=== PATIENT | male | born 1995 | race Caucasian/White ===

== ENCOUNTER 2018-05-15 21:14 | Emergency (ER) | payer BC, SELFPAY ==
[2018-05-15 21:15] VITALS: BP 136/73; PULSE 62; RESP 18; TEMP 37.3; O2SAT 99; BMI 21.7
--- NOTE | 2018-05-15 21:45 | RAD_ITS ---
STUDY: X-RAY CHEST REASON FOR EXAM: Male, 22 years old. Fever. Cough. TECHNIQUE: PA and lateral views of the chest. COMPARISON: August 01, 2016. FINDINGS: The lungs are clear and hyper expanded. There is no demonstrated pleural abnormality. Normal size heart. Normal mediastinum and elliott. Normal visualized pulmonary arteries. Normal visualized aortic arch and descending thoracic aorta. Normal visualized thoracic spine. Normal visualized ribs, clavicles, and shoulders. There is no demonstrated abnormality of the visualized soft tissue structures of the upper abdomen. RAD/Chest PA and Lateral IMPRESSION: No focal infiltrate or edema. Electronically Signed: Damian Theodore MD at 22:15 EDT , Service support ,
--- NOTE | 2018-05-15 21:53 | ED.VISSUMM ---
- ER Visit Summary Date of Service: 05/15/18 Chief Complaint: Fever, cough History of Present Illness: The patient is a 22 M who presents with fever, cough, dyspnea, dyspnea on exertion that started Monday. He has history of seasonal allergies with bronchospasm. He does complain of mild bifrontal headache. He complains of nasal congestion. He denies earache. He states his throat hurts when he coughs. He denies any chest pain. His cough is productive of green to yellow colored sputum. He is a non-smoker. He denies nausea, vomiting diarrhea. He denies dysuria, frequency, urgency or hematuria. He has not noted any rashes. He denies light sensitivity, neck stiffness or pain. Physical Examination: Patient appears ill. He does not appear toxic. His vital signs are unremarkable. He is afebrile presently. Head is atraumatic normocephalic. Pupils are equal round reactive. Extraocular muscles are intact. TMs are pearly white with landmarks noted. Nares patent with no drainage. Posterior pharynx without erythema or exudate. Uvula is midline. There is no dysphonia or dysphasia. Trachea is midline. There is no stridor with auscultation of the neck. Neck is supple with no meningeal findings. Heart is regular without murmur, gallop or rub. Patient has wheezing left lower lobe posteriorly with increased vocal fremitus and egophony. There are scattered rales on the left as well. Abdomen is soft nontender. Bowel sounds are present normal. Patient is alert and oriented ?3. Motor is 5 over 5. Sensory is intact. DTRs are symmetric with no clonus or Babinski sign. Cranial 2 through 12 are intact. Cerebellar testing is normal. Test Results: Two-view chest x-ray was obtained and reveals no abnormality per my interpretation. The cardiac silhouette is normal. Mediastinum is normal. There is no infiltrate or effusion noted. Emergency Department Course and Treatment: Clinically patient has left lower lobe pneumonia. Will obtain chest x-ray. Since he is wheezing he was treated with albuterol. He also received a doxycycline 100 mg capsule. Treatment Plan: Albuterol inhaler and antibiotics Disposition: Discharged to home Impression: 1. Clinical left lower lobe pneumonia 2. Bronchospasm secondary #1 This note was generated with [employer] software. It may contain incorrect words, spelling, and punctuation that were not noted in review of the chart prior to signing ED Disposition - Plan for ED Patient: Disposition: Home or Assisted Living Chief Complaint: General Illness Instructions: ED Pneumonia Adult Prescriptions: Doxycycline Monohydrate 100 mg PO BID #14 cap Referrals: [facility] Doctor,Out of [Primary Care Provider] - Jake Alvarado [NON-STAFF] - 1 Week if not improving Additional Instructions: Administer 2 puffs of albuterol inhaler every 2-4 hours while awake for the next 4 days then every 4-6 hours as needed. Take doxycycline until gone.
[2018-05-15] MEDS: Doxycycline 100 MG CAPSULE PO (22:07)
== END 2018-05-15 22:21 | disposition home or self-care (01) ==
PROVIDERS: Emergency Provider Emergency Medicine
DX: J18.1 Lobar pneumonia, unspecified organism (principal); J98.01 Acute bronchospasm
CPT/HCPCS: 71046; 99283

== ENCOUNTER 2018-08-26 14:23 | Emergency (ER) | payer BC, SELFPAY ==
[2018-08-26 14:24] VITALS: BP 137/90; PULSE 98; RESP 14; TEMP 37.1; O2SAT 99; BMI 20.4
[2018-08-26] MEDS: LORazepam 2 MG/ML Syringe 1 MG IM (14:59)
[2018-08-26 15:04] VITALS: PULSE 74; O2SAT 100
[2018-08-26 15:19] LABS: BUN 13 mg/dL (7-18); BUN/Creat Ratio 12.4 RATIO (10-20); Calcium,Total 8.8 mg/dL (8.5-10.1); Chloride 107 mmol/L (98-107); Creatinine, Serum 1.05 mg/dL (0.70-1.30); EST Glomerular Filtration Rate 95 mL/min (>60); Est Glom Filt Rate - Afr Amer 114 mL/min (>60); Estimated Creatinine Clearance 107.35 ml/min; Glucose 107 mg/dL (74-106); Potassium 3.4 mmol/L (3.5-5.1); Sodium Level 140 mmol/L (136-145)
[2018-08-26 15:20] LABS: Anion Gap 7 (5-15); Thyroid Stim Hormone (TSH) 0.87 uIU/mL (0.358-3.74)
--- NOTE | 2018-08-26 15:29 | ED.VISSUMM ---
- ER Visit Summary Date of Service: 08/26/18 Chief Complaint: [] History of Present Illness: The patient is a 23 M [anxiety attack presents to the emergency department with complaint of panic attacks over the last 3 days. Patient states that he has had episodes of chest tightness and heart racing as well as numbness in his hands and feet as well as around his mouth. Patient states that he is having a hard time sleeping or eating. Patient has dealt with anxiety for years and about 3 years ago was actually on BuSpar for a short time on an as-needed basis. Patient had been seeing a counselor at that time. Patient denies any homicidal or suicidal ideations. Patient denies any hallucinations. Patient not currently on any medications for anxiety.] Physical Examination: [HEENT-PERRLA, EOMI. Cranial nerves II through XII grossly intact. TMs clear. Mucous membranes moist. No adenopathy. Cardiovascular-regular rate and rhythm without murmur or ectopy Lungs-clear to auscultation, chest wall stable without crepitus or subcu emphysema Abdomen-normoactive bowel sounds, soft, nontender, no rebound or rigidity, no peritoneal signs. Extremities-intact ?4, normal range of motion, normal pulses, atraumatic] Test Results: [Chemistries unremarkable other than a slightly depressed potassium of 3.4. TSH was normal at 0.87.] Emergency Department Course and Treatment: [Patient was given 1 mg of Ativan. Patient was evaluated by crisis and was advised on outpatient follow-up which I feel is reasonable.] Treatment Plan: [She will be given a prescription for as needed Ativan as well as Vistaril.] Disposition: [Discharged home in stable condition. Patient advised to follow-up if condition should worsen anyway or if he should have suicidal ideations.] Impression: [Anxiety reaction] This note was generated with [employer] dictation software. It may contain incorrect words, spelling, and punctuation that were not noted in review of the chart prior to signing ED Disposition - Plan for ED Patient: Chief Complaint: Anxiety
--- NOTE | 2018-08-26 15:32 | ED.DCSUM_ITS ---
- ER Visit Summary Date of Service: 08/26/18 Chief Complaint: [] History of Present Illness: The patient is a 23 M [anxiety attack presents to the emergency department with complaint of panic attacks over the last 3 days. Patient states that he has had episodes of chest tightness and heart racing as well as numbness in his hands and feet as well as around his mouth. Patient states that he is having a hard time sleeping or eating. Patient has dealt with anxiety for years and about 3 years ago was actually on BuSpar for a short time on an as-needed basis. Patient had been seeing a counselor at that time. Patient denies any homicidal or suicidal ideations. Patient denies any hallucinations. Patient not currently on any medications for anxiety.] Physical Examination: [HEENT-PERRLA, EOMI. Cranial nerves II through XII grossly intact. TMs clear. Mucous membranes moist. No adenopathy. Cardiovascular-regular rate and rhythm without murmur or ectopy Lungs-clear to auscultation, chest wall stable without crepitus or subcu emphysema Abdomen-normoactive bowel sounds, soft, nontender, no rebound or rigidity, no peritoneal signs. Extremities-intact ?4, normal range of motion, normal pulses, atraumatic] Test Results: [Chemistries unremarkable other than a slightly depressed potassium of 3.4. TSH was normal at 0.87.] Emergency Department Course and Treatment: [Patient was given 1 mg of Ativan. Patient was evaluated by crisis and was advised on outpatient follow-up which I feel is reasonable.] Treatment Plan: [She will be given a prescription for as needed Ativan as well a s Vistaril.] Disposition: [Discharged home in stable condition. Patient advised to follow-up if condition should worsen anyway or if he should have suicidal ideations.] Impression: [Anxiety reaction] This note was generated with [employer] dictation software. It may contain incorrect words, spelling, and punctuation that were not noted in review of the chart prior to signing ED Disposition - Plan for ED Patient: Chief Complaint: Anxiety
--- NOTE | 2018-08-26 15:32 | ED.DEP ---
ED Disposition - Plan for ED Patient: Chief Complaint: Anxiety Instructions: ED Panic Attack Prescriptions: hydrOXYzine pamoate capsule [Vistaril] 50 mg PO TID PRN PRN #30 cap PRN Reason: Anxiety Lorazepam [Ativan] 1 mg PO TID PRN #10 tab PRN Reason: Anxiety Additional Instructions: see your doctor in 3-5 days
== END 2018-08-26 15:44 | disposition home or self-care (01) ==
PROVIDERS: Emergency Provider Emergency Medicine
DX: F41.1 Generalized anxiety disorder (principal); J45.909 Unspecified asthma, uncomplicated
CPT/HCPCS: 36415; 80048; 84443; 96372; 99282

== ENCOUNTER 2019-03-11 18:16 | Emergency (ER) | payer BC, SELFPAY ==
[2019-03-11 18:19] VITALS: BP 129/86; PULSE 76; RESP 18; TEMP 36.6; O2SAT 99; BMI 21.7
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
--- NOTE | 2019-03-11 19:22 | DCINST.ED_ITS ---
ED Disposition - Plan for ED Patient: Instructions: ED Contusion Lower Ext Prescriptions: Naproxen [Naprosyn] 500 mg PO BID PRN #20 tablet Referrals: [facility] Doctor,Out of [Primary Care Provider] -
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
[2019-03-11 19:35] VITALS: RESP 16
== END 2019-03-11 19:36 | disposition home or self-care (01) ==
PROVIDERS: Emergency Provider Emergency Medicine
DX: S39.012A Strain of muscle, fascia and tendon of lower back, initial encounter (principal); S93.402A Sprain of unspecified ligament of left ankle, initial encounter; S40.012A Contusion of left shoulder, initial encounter; V86.56XA Driver of dirt bike or motor/cross bike injured in nontraffic accident, initial encounter; Y93.9 Activity, unspecified; Y92.9 Unspecified place or not applicable
CPT/HCPCS: 72100; 73030; 73610; 99283

== ENCOUNTER 2019-08-23 12:57 | Emergency (ER) | payer BC, SELFPAY ==
[2019-08-23 12:59] VITALS: BP 136/70; PULSE 71; RESP 17; TEMP 36.9; O2SAT 98; BMI 23.3
--- NOTE | 2019-08-23 14:01 | CT_ITS ---
STUDY: CT BRAIN WITHOUT CONTRAST REASON FOR EXAM: Male, 24 years old. Two-week history of headaches. RADIATION DOSAGE (If Supplied By Facility): CTDIvol = ( 44.99 ) mGy, DLP = ( 883.29 ) mGycm TECHNIQUE: Transaxial CT imaging of the brain was performed without administration of intravenous contrast material. Individualized dose optimization techniques were used for this CT. COMPARISON: No relevant priors. FINDINGS: Normal soft tissue structures. Normal calvarium. Normal size ventricles and extra-axial spaces for the patient's age. Normal white matter tracts of the cerebral hemispheres. Normal basal ganglia and thalami. Normal brainstem. Normal cerebellum. There is no intracranial hemorrhage. There are no findings of an acute ischemic infarction. Prominence of the inferior turbinate of the right nasal fossa with the mild degree of mucosal thickening along the superior medial aspect of the right maxillary sinus. CT/Brain/Head without Contrast IMPRESSION: Normal unenhanced CT scan of the brain. Hypertrophy of the right inferior turbinate with the thickening of the medial aspect of the right maxillary sinus at the level of the infundibulum. Electronically Signed: Shane Shields, at 14:55 EDT , Service support ,
--- NOTE | 2019-08-23 14:03 | ED.VISSUMM ---
- ER Visit Summary Date of Service: 08/23/19 Chief Complaint: Headache History of Present Illness: The patient is a 24 M M past medical or surgical history. Patient states she has had a headache was gradual onset about 2 weeks ago. Behind both eyes and in the posterior aspect of his head. He denies any prior history of headaches. No history of trauma. No fever. No sinus congestion. No one else at home is been having headaches. There is no family history of intracranial bleeds or aneurysms. He denies any fever. No trouble moving his arms or legs. Mom has a history of migraines. Physical Examination: Young male no acute distress vital signs stable afebrile. H EENT exam unremarkable. Light. No facial droop. No signs of trauma. No tenderness or trauma to his scalp. C-spine nontender. Normal range of motion. Able to touch chin to chest. No meningismus. No lymphadenopathy. Lungs clear to auscultation bilaterally. Heart regular rhythm no murmur. Abdomen soft nontender. Extremities moves all 4. Neurovascular intact. Equal symmetrical caustic liquor maker strength. Dorsi plantarflexion intact. Neurologically is awake alert with no focal motor or sensory deficits. Fingertip to nose congestion all within normal limits. NIH score 0. Skin normal no rashes. Back normal. Test Results: CAT scan of the brain without contrast shows acute abnormality. Read as normal. He has some mild inflammation of his sinuses. CBC shows no acute abnormality. Normal. White count 6. Hemoglobin 15. Electrolytes are normal. Normal creatinine and gap. Is 95. Emergency Department Course and Treatment: Patient treated with IV Toradol. Repeat exam at 15 10 PM patient is doing well. Headache is resolving with the IV Toradol. His neurologic exam remains normal. Treatment Plan: Tylenol and Motrin for pain. Follow-up with eye exam as an outpatient. Patient was concerned that his headache may be due to needing glasses we checked a visual acuity prior to discharge it was 20//30 and 20/40. Disposition: Discharge Impression: Acute cephalgia of uncertain etiology This note was generated with [employer] dictation software. It may contain incorrect words, spelling, and punctuation that were not noted in review of the chart prior to signing ED Disposition - Plan for ED Patient: Disposition: Home or Assisted Living Instructions: HEADACHE, Unspecified Referrals: [facility] Doctor,Out of [Primary Care Provider] - As Needed Additional Instructions: Follow-up with outpatient prior exam. Tylenol Motrin for pain. Follow-up with your doctor if not improving.
[2019-08-23] MEDS: Ketorolac 30 MG/ML Syringe IM (14:22)
[2019-08-23 14:36] LABS: Absolute Lymphocyte Count 2.73 X10^3/uL (0.83-4.51); Absolute Neutrophil Count 3.2 X10^3/uL (2.0-7.7); Basophil# 0.04 X10^3/uL; Basophil% 0.6 % (0-1); Eosinophil# 0.09 X10^3/uL; Eosinophils% 1.4 % (0-5); Hematocrit 43.9 % (40-54); Lymphocyte # 2.73 X10^3/ul (4.0); Lymphocyte % 41.8 % (19-41); Mean Corp Hgb Conc 34.2 g/dL (32-36); Mean Corpuscular Hgb 30.7 pg (27.0-32.0); Mean Platelet Vol. 9.3 fl (6.2-12.0); Monocyte# 0.47 X10^3/uL; Monocyte% 7.2 % (0-10); NRBC Flagged by Analyzer 0 % (0-5); Neutrophil # 3.19 X10^3/uL (2.7-7.7); Neutrophil % 48.8 % (47-70); Platelet Count 246 K/mm3 (150-450); RBC Distribution Width CV 11.7 % (11.6-14.6); RBC Distribution Width SD 38.4 fl (35.1-43.9); Red Blood Count 4.88 M/mm3 (4.6-6.2); White Blood Count 6.5 K/mm3 (4.4-11.0)
[2019-08-23 14:47] LABS: Anion Gap 3 (5-15); BUN 15 mg/dL (7-18); BUN/Creat Ratio 13.5 RATIO (10-20); Calcium,Total 9.2 mg/dL (8.5-10.1); Chloride 104 mmol/L (98-107); Creatinine, Serum 1.11 mg/dL (0.70-1.30); EST Glomerular Filtration Rate 88 mL/min (>60); Est Glom Filt Rate - Afr Amer 106 mL/min (>60); Estimated Creatinine Clearance 114.57 ml/min; Glucose 95 mg/dL (74-106); Potassium 3.5 mmol/L (3.5-5.1); Sodium Level 139 mmol/L (136-145)
--- NOTE | 2019-08-23 15:14 | ED.DEP ---
ED Disposition - Plan for ED Patient: Disposition: Home or Assisted Living Instructions: HEADACHE, Unspecified Referrals: [facility],Out of [Primary Care Provider] - As Needed Additional Instructions: Follow-up with outpatient prior exam. Tylenol Motrin for pain. Follow-up with your doctor if not improving.
[2019-08-23 15:35] VITALS: PULSE 60; RESP 17; O2SAT 98
== END 2019-08-23 15:37 | disposition home or self-care (01) ==
PROVIDERS: Emergency Provider Emergency Medicine
DX: R51 Headache (principal)
CPT/HCPCS: 70450; 80048; 85025; 96372; 99284